=== PATIENT | female | born 1995 | race Caucasian/White ===

== ENCOUNTER 2016-12-11 16:13 | Emergency (ER) | payer OTHER ==
[~2016-12-11] VITALS: Ht 160 cm; Wt 69.4 kg
[2016-12-11 16:16] VITALS: TEMP 36.5; Ht 160 cm; Wt 69.4 kg
[2016-12-11] MEDS ORDERED: ALUMINUM/MAGNESIUM SUSP 30 ML UDC PO STA (16:24)
[2016-12-11] MEDS ORDERED: SODIUM CHLORIDE 0.9% 1000ML 1,000 ML IV STA (16:24)
[2016-12-11] MEDS ORDERED: ONDANSETRON INJ 2 MG/ML 2 ML VIAL IV STA (16:24)
[2016-12-11] MEDS ORDERED: LIDOCAINE HCL 2% VISC SOLN 20 ML UDC PO STA (16:24)
[2016-12-11] MEDS ORDERED: ACET-1256 PO (16:37)
[2016-12-11 17:13] LABS: BASO % 0.1 %; BASO ABS # 0.01 K/uL (0-0.2); COMPLETE YES; EOS % 0.2 %; HEMATOCRIT 41.3 % (37-47); IG% 0.2 %; LYMPH % 3.7 %; LYMPH ABS # 0.46 K/uL (1.2-3.4); MEAN CELL VOLUME 88.2 fL (80-100); MEAN CORPUSCULAR HEMOGLOBIN 30.6 pg (25-34); MEAN CORPUSCULAR HGB CONC 34.6 g/dl (32-36); MEAN PLATELET VOLUME 9.5 fL (7.4-10.4); MONO % 2.8 %; PLATELET COUNT 166 K/uL (130-400); RED BLOOD COUNT 4.68 M/uL (4.2-5.4); WHITE BLOOD COUNT 12.28 K/uL (4.8-10.8)
--- NOTE | 2016-12-11 17:57 | DIAGNOSTIC IMAGING REPORT ---
ABDOMINAL ULTRASOUND, RIGHT UPPER QUADRANT HISTORY: right upper quadrant pain. COMPARISON: None. FINDINGS: Pancreas: The pancreatic tail is obscured by overlying bowel gas. The remaining portions of the pancreas are within normal limits. Liver: Unremarkable. Gallbladder: No gallbladder wall thickening. No gallstones. CBD: 2 mm. Right kidney: No hydronephrosis. IMPRESSION: No significant abnormality identified within the right upper quadrant. Electronically signed by: Lane Sewell M.D. 12/11/2016 5:55 PM Dictated Date/Time: 12/11/2016 5:54 PM
[2016-12-11 19:08] LABS: BUN/CREATININE RATIO 14.2 (10-20); CALCIUM 8.1 mg/dl (8.5-10.1); CREATININE 0.81 mg/dl (0.60-1.20); POTASSIUM 3.7 mmol/L (3.5-5.1)
--- NOTE | 2016-12-11 19:22 | EMERGENCY ROOM VISIT NOTE ---
History First contact with patient: 16:18 Chief Complaint: ABDOMINAL PAIN Stated Complaint: UPPER ABD PAIN Nursing Triage Summary: Pt c/o diarrhea since 0600, emesis x 4. Upper abd pain and "in my heart". History of Present Illness The patient is a 21 year old female who presents to the Emergency Room with complaints of upper abdominal pain which radiates into her chest for the past 30 minutes. The patient also admits to nausea and vomiting. The patient states that she woke up this morning at 6 AM with diarrhea. The patient has had loose bowel movements frequently since that time. The patient denies any fever any chest tightness or chest pressure. The patient does have a history of some reflux. The patient has not taken anything for her stomach but has taken Tylenol. The patient states that her roommate has been sick with similar symptoms. The patient has been able to keep some water down since the onset of her symptoms. Review of Systems 10 system review was performed and was negative unless stated otherwise history of present illness. Past Medical/Surgical History No significant past medical history Social History Smoking Status: Never Smoker Marital Status: single Housing Status: lives with roommate Occupation Status: [employer] Current/Historical Medications Miscellaneous Medications Acetaminophen (Tylenol), 500 MG PO Allergies Coded Allergies: No Known Allergies (Unverified , 12/11/16) Physical Exam Vital Signs Date Time Temp Pulse Resp B/P Pulse Ox O2 Delivery O2 Flow Rate FiO2 12/11/16 18:47 99 16 134/85 98 Room Air 12/11/16 16:47 102 12/11/16 16:16 36.5 114 18 128/85 99 Room Air Physical Exam GENERAL: 21-year-old female appears in no acute distress. MENTAL Status: Alert and oriented 3. EYES: No icterus noted MOUTH: Mucosa is moist NECK: Supple, no lymphadenopathy noted. No carotid bruits noted. LUNGS: Clear auscultation without wheezes rales or rhonchi. CARDIAC: Regular rate and rhythm without murmur. Pulses is full and equal throughout. BACK: No CVA tenderness noted. ABDOMEN: Positive bowel sounds all 4 quadrants. Soft, tenderness to palpation in the epigastric region and more so in the right upper quadrant with positive Schafer sign. Remainder of abdomen is nontender to palpation without organomegaly or masses. EXTREMITIES: No cyanosis or edema noted. Medical Decision & Procedures ER Provider Diagnostic Interpretation: ABDOMINAL ULTRASOUND, RIGHT UPPER QUADRANT HISTORY: right upper quadrant pain. COMPARISON: None. FINDINGS: Pancreas: The pancreatic tail is obscured by overlying bowel gas. The remaining portions of the pancreas are within normal limits. Liver: Unremarkable. Gallbladder: No gallbladder wall thickening. No gallstones. CBD: 2 mm. Right kidney: No hydronephrosis. IMPRESSION: No significant abnormality identified within the right upper quadrant. Electronically signed by: Lane Sewell M.D. 12/11/2016 5:55 PM Laboratory Results 12/11/16 17:00 Red Blood Count 4.68, Mean Corpuscular Volume 88.2, Mean Corpuscular Hemoglobin 30.6, Mean Corpuscular Hemoglobin Concent 34.6, Mean Platelet Volume 9.5, Neutrophils (%) (Auto) 93.0, Lymphocytes (%) (Auto) 3.7, Monocytes (%) (Auto) 2.8, Eosinophils (%) (Auto) 0.2, Basophils (%) (Auto) 0.1, Neutrophils # (Auto) 11.41, Lymphocytes # (Auto) 0.46, Monocytes # (Auto) 0.34, Eosinophils # (Auto) 0.03, Basophils # (Auto) 0.01 12/11/16 18:15 Test 12/11/16 17:00 12/11/16 18:15 12/11/16 19:00 White Blood Count 12.28 K/uL (4.8-10.8) Red Blood Count 4.68 M/uL (4.2-5.4) Hemoglobin 14.3 g/dL (12.0-16.0) Hematocrit 41.3 % (37-47) Mean Corpuscular Volume 88.2 fL (80-100) Mean Corpuscular Hemoglobin 30.6 pg (25-34) Mean Corpuscular Hemoglobin Concent 34.6 g/dl (32-36) Platelet Count 166 K/uL (130-400) Mean Platelet Volume 9.5 fL (7.4-10.4) Neutrophils (%) (Auto) 93.0 % Lymphocytes (%) (Auto) 3.7 % Monocytes (%) (Auto) 2.8 % Eosinophils (%) (Auto) 0.2 % Basophils (%) (Auto) 0.1 % Neutrophils # (Auto) 11.41 K/uL (1.4-6.5) Lymphocytes # (Auto) 0.46 K/uL (1.2-3.4) Monocytes # (Auto) 0.34 K/uL (0.11-0.59) Eosinophils # (Auto) 0.03 K/uL (0-0.5) Basophils # (Auto) 0.01 K/uL (0-0.2) RDW Standard Deviation 44.9 fL (36.4-46.3) RDW Coefficient of Variation 14.0 % (11.5-14.5) Immature Granulocyte % (Auto) 0.2 % Immature Granulocyte # (Auto) 0.03 K/uL (0.00-0.02) Anion Gap 9.0 mmol/L (3-11) Est Creatinine Clear Calc Drug Dose 101.8 ml/min Estimated GFR () 119.5 Estimated GFR (Non- 103.1 BUN/Creatinine Ratio 14.2 (10-20) Calcium Level 8.1 mg/dl (8.5-10.1) Total Bilirubin 0.7 mg/dl (0.2-1) Direct Bilirubin 0.2 mg/dl (0-0.2) Aspartate Amino Transf (AST/SGOT) 53 U/L (15-37) Alanine Aminotransferase (ALT/SGPT) 31 U/L (12-78) Alkaline Phosphatase 91 U/L (45-117) Total Protein 7.2 gm/dl (6.4-8.2) Albumin 3.7 gm/dl (3.4-5.0) Lipase 140 U/L (73-393) Medications Administered Medications (Trade) Dose Ordered Sig/Klever Route Start Time Stop Time Status Last Admin Dose Admin Sodium Chloride (Nss 1000ml) 1,000 ml @ 999 mls/hr Q1H1M STAT IV 12/11/16 16:24 12/11/16 17:24 DC 12/11/16 16:41 999 MLS/HR Lidocaine HCl (Viscous Lidocaine 2% Soln) 10 ml NOW STAT PO 12/11/16 16:24 12/11/16 16:26 DC 12/11/16 16:40 10 ML Al Hydroxide/Mg Hydroxide (Maalox Susp) 30 ml NOW STAT PO 12/11/16 16:24 12/11/16 16:26 DC 12/11/16 16:40 30 ML Ondansetron HCl (Zofran Inj) 4 mg NOW STAT IV 12/11/16 16:24 12/11/16 16:26 DC 12/11/16 16:41 4 MG ED Course The patient was evaluated. The patient was placed on a monitor. IV access was obtained. The patient was given 1 L normal saline wide-open. The patient was given Zofran 4 mg IV push for nausea. The patient was given a GI cocktail. CBC and differential, renal profile, LFTs and lipase levels were ordered. Ultrasound of the gallbladder was ordered and interpreted by the radiologist as above without any acute findings. Urinalysis was ordered. The patient's labs are reviewed.. The patient's white count was only slightly elevated otherwise labs are unremarkable. After the patient received a GI cocktail she felt completely better. She also then disclosed to the nurse that she was drinking heavily this weekend prior to the onset of her symptoms. The patient was informed of all findings and discharged home in stable condition. Medical Decision Differential diagnoses include reflux, gastritis, gastroenteritis, pancreatitis , cholelithiasis, cholecystitis, appendicitis, mesenteric ischemia, pyelonephritis, urinary tract infection, renal colic, diverticulitis, shingles, bowel obstruction, intussusception, hernia, ovarian torsion, ruptured ovarian cyst, ectopic , . Impression Primary Impression: Nausea and vomiting Additional Impression: Epigastric pain Departure Information Dispostion Home / Self-Care Condition GOOD Referrals No Doctor, Assigned (PCP) Forms HOME CARE DOCUMENTATION FORM, IMPORTANT VISIT INFORMATION Patient Instructions ED Nausea Vomiting, [facility] Additional Instructions Push fluids. Follow bland diet. Advance diet slowly as tolerated. Take Zofran as needed for nausea. If symptoms persist or worsen, return to ER. Problem Qualifiers Primary Impression: Nausea and vomiting Vomiting type: unspecified Vomiting Intractability: unspecified Qualified Codes: R11.2 - Nausea with vomiting, unspecified
[2016-12-11 19:23] LABS: URINE APPEARANCE CLEAR (CLEAR); URINE BILIRUBIN NEG (NEG); URINE COLOR YELLOW; URINE NITRITE NEG (NEG); URINE SPECIFIC GRAVITY 1.026 (1.000-1.030); UROBILINOGEN NEG (NEG); ZZUR CULT IF INDIC CLEAN CATCH NO
[2016-12-11] MEDS ORDERED: ONDANSETRON HOME PACK 4MG OD TAB PO ONE (19:30)
[2016-12-11 19:31] LABS: MANUAL MICROSCOPIC REQUIRED? NO; REVIEW REQ? NO
[2016-12-11 19:35] VITALS: BP 123/86; PULSE 102; O2SAT 100
== END 2016-12-11 19:35 | disposition home or self-care (01) ==
LOC: C.EDB 16:15
DX: R11.2 Nausea with vomiting, unspecified (principal); R10.13 Epigastric pain